=== PATIENT | female | born 2000 | race Caucasian/White ===

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

== ENCOUNTER 2022-01-20 13:19 | Emergency (ER) | payer SELFPAY ==
[~2022-01-20] VITALS: Ht 160 cm; Wt 60.8 kg
[2022-01-20] MEDS ORDERED: QUETIAPINE FUMARATE 25 MG TAB PO ONE (14:45)
[2022-01-20 14:54] LABS: BASOPHILS % 0.5 % (0.0-1.0); EOSINOPHILS # (AUTO) 0.1 (0.0-0.4); HEMATOCRIT 39.5 % (34.2-44.1); LYMPHOCYTES # (AUTO) 1.8 (1.0-3.2); LYMPHOCYTES % 21.3 % (18.0-39.1); MEAN CORPUSCULAR HEMOGLOBIN 28.7 pg (28-32); MEAN CORPUSCULAR HGB CONC 32.9 g/dL (31-35); MEAN CORPUSCULAR VOLUME 87.2 fL (81-99); MONOCYTES # (AUTO) 0.9 (0.2-0.8); MONOCYTES % 10.3 % (4.4-11.3); NEUTROPHILS # (AUTO) 5.5 (2.1-6.9); NEUTROPHILS % 66.7 % (38.7-80.0); PLATELET COUNT 367 x10e3/uL (140-360); RED BLOOD COUNT 4.53 x10e6/uL (3.6-5.1); RED CELL DISTRIBUTION WIDTH 12.7 % (11.7-14.4)
[2022-01-20 15:05] LABS: AMPHETAMINES SCREEN,URINE NEGATIVE (NEGATIVE); BENZODIAZEPINES SCREEN,URINE NEGATIVE (NEGATIVE); PHENCYCLIDINE SCREEN,URINE NEGATIVE (NEGATIVE)
[2022-01-20 15:06] LABS: ALBUMIN 4.3 g/dL (3.5-5.0); ANION GAP 12.9 mmol/L (8-16); CALCIUM 9.7 mg/dL (8.4-10.2); CREATININE, SERUM 0.76 mg/dL (0.57-1.11); POTASSIUM 3.9 mmol/L (3.5-5.1)
[2022-01-20 15:37] LABS: FREE THYROXINE INDEX 2.6021 (1.4-3.8); THYROID STIMULATING HORMONE 1.149 uIU/mL (0.350-4.940)
[2022-01-20 15:41] LABS: SALICYLATE < 5.0 mg/dL (0-30)
== END 2022-01-20 16:39 | disposition home or self-care (01) ==
LOC: ER 13:27
DX: R46.89 Other symptoms and signs involving appearance and behavior (principal); G47.00 Insomnia, unspecified
CPT/HCPCS: 36415; 80053; 80307; 80320; 80329; 84436; 84443; 84479; 85025; 99282